=== PATIENT | male | born 1980 | race Hispanic/Latino ===

== ENCOUNTER 2017-12-23 08:53 | Emergency (ER) | payer SELFPAY ==
--- NOTE | 2017-12-23 09:20 | ER ---
Nurse's Notes [facility] Name: Devyn Gómez Age: 37 yrs Sex: Male : 1980 Arrival Date: 12/23/2017 Time: 08:57 Bed 19 Private MD: Rosi Mcelroy H Diagnosis: Malaise and fatigue;Cough Presentation: 12/23 09:05 Presenting complaint: Patient states: "I've just been feeling tired since Thursday, like ss dry mouth, I can't taste anything, and it's just like flu like symptoms.". Transition of care: patient was not received from another setting of care. Onset of symptoms was December 21, 2017. Risk Assessment: Do you want to hurt yourself or someone else? Patient reports no desire to harm self or others. Initial Sepsis Screen: Does the patient meet any 2 criteria? No. Patient's initial sepsis screen is negative. Does the patient have a suspected source of infection? No. Patient's initial sepsis screen is negative. Care prior to arrival: None. 09:05 Method Of Arrival: Ambulatory ss 09:05 Acuity: NEERU 4 ss Historical: - Allergies: 09:08 No Known Allergies; ss - Home Meds: 09:08 None [Active]; ss - PMHx: 09:08 None; ss - PSHx: 09:08 L ankle sx; testicular tortion correction as a child; ss - Immunization history:: Adult Immunizations up to date. - Social history:: Smoking status: Patient uses tobacco products, denies chronic smoking, but will smoke occasionally. - Ebola Screening: : Patient denies exposure to infectious person Patient denies travel to an Ebola-affected area in the 21 days before illness onset. Screenin:10 Abuse screen: Denies threats or abuse. Denies injuries from another. Nutritional jl7 screening: No deficits noted. Tuberculosis screening: No symptoms or risk factors identified. Fall Risk None identified. Assessment: 09:10 General: Appears in no apparent distress. uncomfortable, Behavior is calm, cooperative. jl7 Pain: Complains of pain in all over Quality of pain is described as aching, Pain began 2-3 days ago. Is continuous. Neuro: Level of Consciousness is awake, alert, obeys commands, Oriented to person, place, time, situation, Gait is steady. Cardiovascular: Patient's skin is warm and dry. Respiratory: Airway is patent Respiratory effort is even, unlabored, Respiratory pattern is regular, symmetrical. GI: No signs and/or symptoms were reported involving the gastrointestinal system. Patient currently denies diarrhea, nausea, vomiting. : No signs and/or symptoms were reported regarding the genitourinary system. EENT: No signs and/or symptoms were reported regarding the EENT system. Derm: Skin is pink, warm \\T\\ dry. Musculoskeletal: No signs and/or symptoms reported regarding the musculoskeletal system. 09:40 Reassessment: Pt drank apple juice, denies discomfort at this time. jl7 Vital Signs: 09:08 BP 143 / 97; Pulse 90; Resp 18; Temp 98.0(TE); Pulse Ox 100% on R/A; Weight 82.55 kg; ss Height 5 ft. 2 in. (157.48 cm); Pain 0/10; 09:31 BP 130 / 78 Supine; Pulse 79; Resp 16 S; Pulse Ox 98% on R/A; jl7 09:33 BP 138 / 73 Sitting; Pulse 84; Resp 16 S; Pulse Ox 98% on R/A; jl7 09:35 BP 138 / 85 Standing; Pulse 92; Resp 16 S; Pulse Ox 98% on R/A; jl7 09:08 Body Mass Index 33.29 (82.55 kg, 157.48 cm) ED Course: 08:57 Patient arrived in ED. mr 08:57 Rosi Mcelroy DO is Private Physician. mr 09:01 Km Solano MD is Attending Physician. jere 09:07 Karley Zepeda RN is Primary Nurse. [facility] 09:07 Triage completed. 09:08 Arm band placed on right wrist. ss 09:10 Patient has correct armband on for positive identification. Bed in low position. Call jl7 light in reach. Side rails up X 1. Pulse ox on. NIBP on. 09:19 Rosi Mcelroy DO is Referral Physician. jere 09:25 X-ray completed. Portable x-ray completed in exam room. Patient tolerated procedure ka well. 09:37 Chest Single View XRAY In Process Unspecified. EDMS 09:41 Urine collected: clean catch specimen, clear. 5 10:02 No provider procedures requiring assistance completed. Patient did not have IV access jl7 during this emergency room visit. Administered Medications: No medications were administered Outcome: :20 Discharge ordered by . jere 10:02 Discharged to home ambulatory. jlVanda 10:02 Condition: stable 10:02 Discharge instructions given to patient, Instructed on discharge instructions, follow up and referral plans. Demonstrated understanding of instructions, follow-up care. 10:02 Patient left the ED. jl7 Signatures: Dispatcher [employer] EDMT Km Solano MD MD cha Rivera, Beata Reid, RN RN Beverly Cheung [facility] Karley Zepeda RN RN jl7
--- NOTE | 2017-12-23 09:21 | EDPHYS ---
Physician Documentation [facility] Name: Devyn Gómez Age: 37 yrs Sex: Male : 1980 Arrival Date: 12/23/2017 Time: 08:57 Bed 19 Private MD: Rosi Mcelroy H ED Physician Km Solano HPI: 12/23 09:15 This 37 yrs old Male presents to ER via Ambulatory with complaints of Fever, jere Dizziness. 09:15 The patient reports fever, not measured (subjective). Onset: The symptoms/episode jere began/occurred. Modifying factors: there are no obvious modifying factors. Associated signs and symptoms: Pertinent positives: cough. Severity of symptoms: At their worst the symptoms were mild in the emergency department the symptoms are unchanged. The patient has not experienced similar symptoms in the past. Historical: - Allergies: 09:08 No Known Allergies; ss - Home Meds: 09:08 None [Active]; ss - PMHx: 09:08 None; ss - PSHx: 09:08 L ankle sx; testicular tortion correction as a child; ss - Immunization history:: Adult Immunizations up to date. - Social history:: Smoking status: Patient uses tobacco products, denies chronic smoking, but will smoke occasionally. - Ebola Screening: : Patient denies exposure to infectious person Patient denies travel to an Ebola-affected area in the 21 days before illness onset. ROS: 09:18 Constitutional: Negative for fever, chills, and weight loss, Eyes: Negative for injury, jere pain, redness, and discharge, ENT: Negative for injury, pain, and discharge, Neck: Negative for injury, pain, and swelling, Cardiovascular: Negative for chest pain, palpitations, and edema, Abdomen/GI: Negative for abdominal pain, nausea, vomiting, diarrhea, and constipation, Back: Negative for injury and pain, : Negative for injury, bleeding, discharge, and swelling, MS/Extremity: Negative for injury and deformity, Skin: Negative for injury, rash, and discoloration, Neuro: Negative for headache, weakness, numbness, tingling, and seizure, Psych: Negative for depression, anxiety, suicide ideation, homicidal ideation, and hallucinations, Allergy/Immunology: Negative for hives, rash, and allergies, Endocrine: Negative for neck swelling, polydipsia, polyuria, polyphagia, and marked weight changes. 09:18 Respiratory: Positive for cough. Exam: 09:18 Constitutional: This is a well developed, well nourished patient who is awake, alert, jere and in no acute distress. Head/Face: Normocephalic, atraumatic. Eyes: Pupils equal round and reactive to light, extra-ocular motions intact. Lids and lashes normal. Conjunctiva and sclera are non-icteric and not injected. Cornea within normal limits. Periorbital areas with no swelling, redness, or edema. ENT: Nares patent. No nasal discharge, no septal abnormalities noted. Tympanic membranes are normal and external auditory canals are clear. Oropharynx with no redness, swelling, or masses, exudates, or evidence of obstruction, uvula midline. Mucous membranes moist. Neck: Trachea midline, no thyromegaly or masses palpated, and no cervical lymphadenopathy. Supple, full range of motion without nuchal rigidity, or vertebral point tenderness. No Meningismus. Chest/axilla: Normal chest wall appearance and motion. Nontender with no deformity. No lesions are appreciated. Cardiovascular: Regular rate and rhythm with a normal S1 and S2. No gallops, murmurs, or rubs. Normal PMI, no JVD. No pulse deficits. Respiratory: Lungs have equal breath sounds bilaterally, clear to auscultation and percussion. No rales, rhonchi or wheezes noted. No increased work of breathing, no retractions or nasal flaring. Abdomen/GI: Soft, non-tender, with normal bowel sounds. No distension or tympany. No guarding or rebound. No evidence of tenderness throughout. Back: No spinal tenderness. No costovertebral tenderness. Full range of motion. Male : Normal genitalia with no discharge or lesions. Skin: Warm, dry with normal turgor. Normal color with no rashes, no lesions, and no evidence of cellulitis. MS/ Extremity: Pulses equal, no cyanosis. Neurovascular intact. Full, normal range of motion. Neuro: Awake and alert, GCS 15, oriented to person, place, time, and situation. Cranial nerves II-XII grossly intact. Motor strength 5/5 in all extremities. Sensory grossly intact. Cerebellar exam normal. Normal gait. Psych: Awake, alert, with orientation to person, place and time. Behavior, mood, and affect are within normal limits. 09:18 Neck: ROM/movement: Meningeal signs: are not present, Kernig's sign is negative, Brudzinski's sign is negative. Vital Signs: 09:08 BP 143 / 97; Pulse 90; Resp 18; Temp 98.0(TE); Pulse Ox 100% on R/A; Weight 82.55 kg; ss Height 5 ft. 2 in. (157.48 cm); Pain 0/10; 09:31 BP 130 / 78 Supine; Pulse 79; Resp 16 S; Pulse Ox 98% on R/A; jl7 09:33 BP 138 / 73 Sitting; Pulse 84; Resp 16 S; Pulse Ox 98% on R/A; jl7 09:35 BP 138 / 85 Standing; Pulse 92; Resp 16 S; Pulse Ox 98% on R/A; jl7 09:08 Body Mass Index 33.29 (82.55 kg, 157.48 cm) MDM: 09:01 Patient medically screened. [facility] 09:18 Data reviewed: vital signs, nurses notes, lab test result(s), radiologic studies. [facility] 12/23 09:42 Order name: Urine Dipstick--Ancillary (enter results) 12/23 09:18 Order name: Chest Single View XRAY [facility] 12/23 09:15 Order name: Vital Signs; Complete Time: 09:40 [facility] 12/23 09:18 Order name: Urine Dipstick-Ancillary (obtain specimen); Complete Time: 09:40 [facility] 12/23 09:20 Order name: PO challenge; Complete Time: 09:40 [facility] 12/23 09:20 Order name: Orthostatics; Complete Time: 09:40 [facility] Administered Medications: No medications were administered Disposition: 12/23/17 09:20 Discharged to Home. Impression: Malaise and fatigue, Cough. - Condition is Stable. - Discharge Instructions: Dizziness, Weakness, Cough, Adult, Pzga-an-Qhtz, Weakness, Xvxo-qa-Orot, Dizziness, Ibve-tg-Jali. - Work release form, Medication Reconciliation Form, Thank You Letter, Antibiotic Education, Prescription Opioid Use form. - Follow up: Rosi Mcelroy DO; When: 2 - 3 days; Reason: Recheck today's complaints, Continuance of care, Re-evaluation by your physician. - Problem is new. - Symptoms have improved. Signatures: Dispatcher [employer] EDKm Adam MD MD cha Smirch, Shelby RN RN Karley Zepeda RN RN jl7 Corrections: (The following items were deleted from the chart) 10:02 09:20 12/23/2017 09:20 Discharged to Home. Impression: Malaise and fatigue; Cough. jl7 Condition is Stable. Forms are Medication Reconciliation Form, Thank You Letter, Antibiotic Education, Prescription Opioid Use. Follow up: Rosi Mcelroy; When: 2 - 3 days; Reason: Recheck today's complaints, Continuance of care, Re-evaluation by your physician. Problem is new. Symptoms have improved. jere
--- NOTE | 2017-12-23 10:01 | RAD REPORT ---
EXAM DESCRIPTION: RAD - Chest Single View - 12/23/2017 9:37 am CLINICAL HISTORY: Cough, flu-like symptoms COMPARISON: None. TECHNIQUE: AP portable chest image was obtained 0929 hours . FINDINGS: Lungs are clear. Heart and vasculature are normal. No measurable pleural effusion and no p neumothorax. No gross bony abnormality seen. No acute aortic findings suspected. IMPRESSION: No acute cardiopulmonary process.
[2017-12-23 10:43] LABS: Urine Blood TRACE (NEG); Urine Glucose NEGATIVE (NEG); Urine Protein 1+ (NEG); Urine Specific Gravity 1.015 (1.005-1.030); Urine pH 8.5 (5.0-7.0)
== END 2017-12-23 10:02 | disposition home or self-care (01) ==
LOC: ER 08:53
DX: R53.81 Other malaise (principal); R53.83 Other fatigue; Z72.0 Tobacco use
CPT/HCPCS: 71045; 81003; 99284

== ENCOUNTER 2021-02-01 08:31 | Emergency (ER) | payer SELFPAY ==
--- NOTE | 2021-02-01 08:49 | EDPHYS ---
Physician Documentation [facility] Name: Devyn Gómez Age: 40 yrs Sex: Male : 1980 Arrival Date: 02/01/2021 Time: 08:34 Bed 16 Private MD: ED Physician Satish Elias HPI: 02/01 08:46 This 40 yrs old Male presents to ER via Unassigned with complaints of kb Congestion, r/o fever. 08:46 The patient or guardian reports cough, that is intermittent, described as mild. Onset: kb The symptoms/episode began/occurred 1.5 week(s) ago. Severity of symptoms: At their worst the symptoms were moderate, in the emergency department the symptoms have improved. Modifying factors: The symptoms are alleviated by nothing, the symptoms are aggravated by nothing. Associated signs and symptoms: Pertinent positives: rhinorrhea, Pertinent negatives: chest pain, diarrhea, ear ache, fever, nausea, sore throat, vomiting. The patient has not experienced similar symptoms in the past. The patient has not recently seen a physician. Pt reports cough and congestion for 1.5 weeks. States this happens when the weather changes. States he took a couple of days off work and when he tried to go back today they told him he needed to make sure he didn't have a fever. States he is feeling better, but came to make sure he didn't have a fever. Does not want any testing done. . Historical: - Allergies: 08:49 No Known Allergies; jt3 - Immunization history:: Adult Immunizations unknown. - Social history:: Smoking status: unknown. ROS: 08:48 Abdomen/GI: Negative for abdominal pain, nausea, vomiting, diarrhea, and constipation. kb 08:48 Constitutional: Positive for chills, fatigue, Negative for body aches, fever, malaise, poor PO intake, weight loss. 08:48 ENT: Positive for sinus congestion. 08:48 Respiratory: Positive for cough. 08:48 All other systems are negative. Exam: 08:48 Constitutional: This is a well developed, well nourished patient who is awake, alert, kb and in no acute distress. Head/Face: Normocephalic, atraumatic. ENT: Moist Mucous membranes Cardiovascular: Regular rate and rhythm with a normal S1 and S2. No gallops, murmurs, or rubs. No pulse deficits. Respiratory: Respirations even and unlabored. No increased work of breathing, no retractions or nasal flaring. Skin: Warm, dry with normal turgor. Normal color. MS/ Extremity: Pulses equal, no cyanosis. Neurovascular intact. Full, normal range of motion. Neuro: Awake and alert, GCS 15, oriented to person, place, time, and situation. Moves all extremities. Normal gait. Psych: Awake, alert, with orientation to person, place and time. Behavior, mood, and affect are within normal limits. Vital Signs: 08:51 BP 138 / 52; Pulse 87; Resp 16; Temp 97.1(TE); Pulse Ox 99% on R/A; Weight 84.82 kg; ss Height 5 ft. 2 in. (157.48 cm); Pain 0/10; 08:51 Body Mass Index 34.20 (84.82 kg, 157.48 cm) ss MDM: 08:41 Patient medically screened. kb 08:48 Data reviewed: vital signs, nurses notes. Data interpreted: Pulse oximetry: on room air kb is 100 %. Interpretation: normal. Counseling: I had a detailed discussion with the patient and/or guardian regarding: the historical points, exam findings, and any diagnostic results supporting the discharge/admit diagnosis, the need for outpatient follow up, a family practitioner, to return to the emergency department if symptoms worsen or persist or if there are any questions or concerns that arise at home. Administered Medications: No medications were administered Disposition: 14:14 Co-signature as Attending Physician, Satish Elias MD I agree with the assessment and kdr plan of care. Disposition Summary: 02/01/21 08:48 Discharge Ordered Location: Home kb Condition: Stable kb Diagnosis - Acute upper respiratory infection, unspecified kb Followup: kb - With: Emergency Department - When: As needed - Reason: Worsening of condition Followup: kb - With: Private Physician - When: 2 - 3 days - Reason: Recheck today's complaints, Continuance of care, Re-evaluation by your physician Discharge Instructions: - Discharge Summary Sheet kb - Upper Respiratory Infection, Adult, [id number] kb - Viral Respiratory Infection, Uzal-Ms-Iizr kb Forms: - Medication Reconciliation Form kb - Thank You Letter kb - Work release form kb - Antibiotic Education kb - Prescription Opioid Use kb Signatures: Cheryl Bill, [employer]-Ckb Satish Elias MD MD kdr Pb Mckeon RN RN jt3
--- NOTE | 2021-02-01 09:00 | ER ---
Nurse's Notes [facility] Name: Devyn Gómez Age: 40 yrs Sex: Male : 1980 Arrival Date: 02/01/2021 Time: 08:34 Bed 16 Private MD: Diagnosis: Acute upper respiratory infection, unspecified Presentation: 02/01 08:51 Chief complaint: Patient states: wants to make sure he does not have a fever before ss returning to work. Was not feeling well over the past week and a half, but now feels better. Does not want any testing, just a temperature check. Coronavirus screen: Client denies travel out of the [place] in the last 14 days. Ebola Screen: Patient denies exposure to infectious person. Patient denies travel to an Ebola-affected area in the 21 days before illness onset. Resp Distress? No respiratory distress is noted at this time. Initial Sepsis Screen: Does the patient meet any 2 criteria? No. Patient's initial sepsis screen is negative. Does the patient have a suspected source of infection? No. Patient's initial sepsis screen is negative. Risk Assessment: Do you want to hurt yourself or someone else? Patient reports no desire to harm self or others. Onset of symptoms was January 23, 2021. 08:51 Method Of Arrival: Ambulatory ss 08:51 Acuity: NEERU 5 ss Triage Assessment: 08:56 General: Appears in no apparent distress. Respiratory: Breath sounds are clear. jt3 Historical: - Allergies: 08:49 No Known Allergies; jt3 - Immunization history:: Adult Immunizations unknown. - Social history:: Smoking status: unknown. Screenin:49 Abuse screen: Denies threats or abuse. Denies injuries from another. Nutritional jt3 screening: No deficits noted. Tuberculosis screening: No symptoms or risk factors identified. Fall Risk None identified. Assessment: 08:49 General: Appears in no apparent distress. Behavior is calm, cooperative. Pain: Denies jt3 pain. Cardiovascular: No deficits noted. Respiratory: No deficits noted. Parent/caregiver reports the patient having Pt. reports wanting to just be checked for fever. Denies SOB, chest pain, or chills at this time. 08:59 Cardiovascular:. Cardiovascular: Denies chest pain. Respiratory: Reports Denies SOB. jt3 Airway is patent. Vital Signs: 08:51 BP 138 / 52; Pulse 87; Resp 16; Temp 97.1(TE); Pulse Ox 99% on R/A; Weight 84.82 kg; ss Height 5 ft. 2 in. (157.48 cm); Pain 0/10; 08:51 Body Mass Index 34.20 (84.82 kg, 157.48 cm) ED Course: 08:34 Patient arrived in ED. as 08:39 Cheryl Bill FNP-C [facility]. kb 08:39 Satish Elias MD is Attending Physician. kb 08:41 Pb Mckeon, RN is Primary Nurse. jt3 08:49 Patient has correct armband on for positive identification. jt3 08:49 No provider procedures requiring assistance completed. Patient did not have IV access jt3 during this emergency room visit. 08:51 Arm band placed on right wrist. ss 08:55 Triage completed. ss Administered Medications: No medications were administered Outcome: 08:48 Discharge ordered by MD. kb 08:55 Discharged to home ambulatory. jt3 08:55 Condition: good 08:55 Discharge instructions given to patient, Instructed on discharge instructions. 09:00 Patient left the ED. Signatures: Cheryl Bill FNP-C FNP-Ckb Martinez, Amelia as Smirch, Shelby, RN RN Pb Mckeon, RN RN jt3
[2021-02-01 09:08] VITALS: BP 138/52; TEMP 97.1; O2SAT 99
== END 2021-02-01 09:00 | disposition home or self-care (01) ==
LOC: ER 08:31
DX: J06.9 Acute upper respiratory infection, unspecified (principal)
CPT/HCPCS: 99281

== ENCOUNTER 2024-07-22 11:28 | Emergency (ER) | payer SELFPAY ==
--- OUTSIDE RECORDS SUMMARY | 2024-07-22 11:31 | XMS REPORT | Continuity of Care Document ---
Author Name Unknown Address [address] [place] [address] [facility]. [address] [place] [address] Care Team Providers Care Clinical Data Management Director Name Role Phone Unavailable Unavailable Unavailable Encounters Start Date/Time End Date/Time Encounter Type Admission Type Attending Clinicians Care Facility Care Department Encounter ID Source 2023-07-01 09:37:20 2023-07-01 09:37:20 Outpatient [facility] [id number] Hair Romero 2022-12-18 09:30:39 2022-12-18 09:30:39 Outpatient [facility] [id number] Hair Romero
--- NOTE | 2024-07-22 12:40 | RAD REPORT ---
EXAM: Chest Single View HISTORY: 43 years Male COUGH COMPARISON: None. FINDINGS: LUNGS/PLEURA: The lungs are clear. No pleural effusions or pneumothorax. No pulmonary edema. CARDIAC/MEDIASTINUM: The cardiac silhouette is within normal limits. UPPER ABDOMEN: No significant abnormality. BONES: No acute abnormality. LINES/TUBES/OTHER: N/A IMPRESSION: No evidence of acute cardiopulmonary disease.
--- NOTE | 2024-07-22 12:48 | EDPHYS ---
Physician Documentation [facility] Name: Devyn Gómez Age: 43 yrs Sex: Male : 1980 Arrival Date: 07/22/2024 Time: 11:28 Bed 12 Private MD: ED Physician Mary Pitt HPI: 07/22 12:51 This 43 yrs old Male presents to ER via Ambulatory with complaints of Cough, gb1 Shortness Of Breath. 12:51 43-year-old male with cough and shortness of breath. Patient's been having just a dry gb1 cough with his allergy symptoms. He denies any chest pain. He does have a history of hypertension but does not stay compliant with his medications as prescribed. He is currently not taking any medications. He denies any fever or chills. He states he feels congestion in his chest wall.. Historical: - Allergies: 12:06 No Known Allergies; jl7 - Home Meds: 12:06 None [Active]; jl7 - PMHx: 12:06 Hypertensive disorder; jl7 - PSHx: 12:06 None; jl7 - Immunization history:: Adult Immunizations unknown. - Infectious Disease History:: Denies. - Social history:: Smoking status: unknown. Exam: 12:51 Constitutional: This is a well developed, well nourished patient who is awake, alert, gb1 and in no acute distress. Head/Face: Normocephalic, atraumatic. Eyes: Pupils equal round and reactive to light, extra-ocular motions intact. Lids and lashes normal. Conjunctiva and sclera are non-icteric and not injected. Cornea within normal limits. Periorbital areas with no swelling, redness, or edema. ENT: Nares patent. No nasal discharge, no septal abnormalities noted. Tympanic membranes are normal and external auditory canals are clear. Oropharynx with no redness, swelling, or masses, exudates, or evidence of obstruction, uvula midline. Mucous membranes moist. Neck: Trachea midline, no thyromegaly or masses palpated, and no cervical lymphadenopathy. Supple, full range of motion without nuchal rigidity, or vertebral point tenderness. No Meningismus. Chest/axilla: Normal chest wall appearance and motion. Nontender with no deformity. No lesions are appreciated. Cardiovascular: Regular rate and rhythm with a normal S1 and S2. No gallops, murmurs, or rubs. Normal PMI, no JVD. No pulse deficits. Respiratory: Lungs have equal breath sounds bilaterally, clear to auscultation and percussion. No rales, rhonchi or wheezes noted. No increased work of breathing, no retractions or nasal flaring. Abdomen/GI: Soft, non-tender, with normal bowel sounds. No distension or tympany. No guarding or rebound. No evidence of tenderness throughout. Skin: Warm, dry with normal turgor. Normal color with no rashes, no lesions, and no evidence of cellulitis. MS/ Extremity: Pulses equal, no cyanosis. Neurovascular intact. Full, normal range of motion. Vital Signs: 12:01 BP 162 / 114; Pulse 113; Resp 17; Temp 98.4; Pulse Ox 100% ; jl7 12:52 BP 155 / 102; Pulse 87; Resp 17; ap3 12:01 Education provided on hypertension management jl7 MDM: 12:02 Medical Screening Exam initiated gb1 12:51 Data reviewed: vital signs, nurses notes. ED course: 43-year-old male with signs gb1 symptoms consistent with an acute bronchitis. No focal pneumonia on chest x-ray. Patient is afebrile and otherwise does not have any anginal equivalents today. I doubt acute influenza or strep pharyngitis. Patient has a history of uncontrolled hypertension secondary to medication noncompliance. Myself and the triage bedside nurse did reiterate to the patient about 3-day blood pressure check 3 times a day and patient is to follow-up with his primary care doctor of record for medications reconciliation for his blood pressure.. 07/22 12:03 Order name: Chest Single View XRAY; Complete Time: 12:47 gb1 Administered Medications: No medications were administered Disposition Summary: 07/22/24 12:48 Discharge Ordered Notes: Location: Home gb1 Problem: new gb1 Symptoms: have worsened gb1 Condition: Stable gb1 Diagnosis - Acute bronchitis, unspecified gb1 Followup: gb1 - With: Private Physician - When: - Reason: Re-evaluation by your physician Discharge Instructions: - Discharge Summary Sheet gb1 - Acute Bronchitis, Adult gb1 - Viral Respiratory Infection, Phmi-Yo-Ehlc gb1 Forms: - Medication Reconciliation Form gb1 - Antibiotic Education gb1 - Prescription Opioid Use gb1 - Patient Portal Instructions gb1 - Leadership Thank You Letter gb1 Signatures: Dispatcher [employer] Karley Corley, RN RN jl7 Mary Pitt MD MD gb1
--- NOTE | 2024-07-22 12:48 | ER ---
Nurse's Notes [facility] Name: Devyn Gómez Age: 43 yrs Sex: Male : 1980 Arrival Date: 07/22/2024 Time: 11:28 Bed 12 Private MD: Diagnosis: Acute bronchitis, unspecified Presentation: 07/22 12:01 Chief complaint: Patient states: Dry cough x 1 month. Coronavirus screen: At this time, jl7 the client does not indicate any symptoms associated with coronavirus-19. Ebola Screen: No symptoms or risks identified at this time. Initial Sepsis Screen: Does the patient meet any 2 criteria? No. Patient's initial sepsis screen is negative. Does the patient have a suspected source of infection? No. Patient's initial sepsis screen is negative. Risk Assessment: Do you want to hurt yourself or someone else? Patient reports no desire to harm self or others. Onset of symptoms is unknown. 12:01 Method Of Arrival: Ambulatory jl7 12:01 Acuity: NEERU 3 jl7 Triage Assessment: 12:06 General: Appears in no apparent distress. uncomfortable, Behavior is calm, cooperative, jl7 appropriate for age. Pain: Denies pain. Respiratory: Reports cough that is non-productive, dry, Onset: The symptoms/episode began/occurred x 1 month, the patient has mild shortness of breath. Historical: - Allergies: 12:06 No Known Allergies; jl7 - Home Meds: 12:06 None [Active]; jl7 - PMHx: 12:06 Hypertensive disorder; jl7 - PSHx: 12:06 None; jl7 - Immunization history:: Adult Immunizations unknown. - Infectious Disease History:: Denies. - Social history:: Smoking status: unknown. Screenin:02 [facility] ED Fall Risk Assessment (Adult) History of falling in the last 3 months, ap3 including since admission No falls in past 3 months (0 pts) Confusion or Disorientation No (0 pts) Intoxicated or Sedated No (0 pts) Impaired Gait No (0 pts) Mobility Assist Device Used No (0 pt) Altered Elimination No (0 pt) Score/Fall Risk Level 0 - 2 = Low Risk Oriented to surroundings, Maintained a safe environment, Educated pt \T\ family on fall prevention, incl call for assistance when getting out of bed, Assessed \T\ reinforced patient's understanding of fall precautions, Hourly rounding (assess needs \T\ fall precautionary measures) done, Used ambulatory aids as needed (educated on \T\ assisted with). Abuse screen: Denies threats or abuse. Nutritional screening: No deficits noted. Tuberculosis screening: No symptoms or risk factors identified. Vital Signs: 12:01 BP 162 / 114; Pulse 113; Resp 17; Temp 98.4; Pulse Ox 100% ; jl7 12:52 BP 155 / 102; Pulse 87; Resp 17; ap3 12:01 Education provided on hypertension management jl7 ED Course: 11:30 Patient arrived in ED. mr 11:40 Mary Pitt MD is Attending Physician. gb1 12:06 Triage completed. jl7 12:06 Arm band placed on right wrist. jl7 12:21 Chest Single View XRAY In Process Unspecified. EDMS 13:02 No provider procedures requiring assistance completed. Patient did not have IV access ap3 during this emergency room visit. 13:03 Patient has correct armband on for positive identification. ap3 13:03 Provided Education on: discharge intructions. ap3 Administered Medications: No medications were administered Medication: 13:03 VIS not applicable for this client. ap3 Outcome: 12:48 Discharge ordered by . gb1 13:03 Condition: good ap3 13:03 Discharge instructions given to patient, family, Instructed on discharge instructions, follow up and referral plans. Demonstrated understanding of instructions, follow-up care, 13:04 Discharged to home ambulatory, ap3 13:04 Patient left the ED. ap3 Signatures: Dispatcher [employer] EDCT Phylicia Botello, Reg Reg Karley James RN RN jl7 Marina Dyer RN RN ap3 Mary Pitt MD MD gb1 Corrections: (The following items were deleted from the chart) 13:03 13:03 Provided Education on: crutch walking. ap3 ap3 13:04 13:03 Discharged to home with crutches, with family, ap3 ap3
[2024-07-22 13:59] VITALS: TEMP 98.4; O2SAT 100
[2024-07-22 14:00] VITALS: BP 155/102
== END 2024-07-22 13:04 | disposition home or self-care (01) ==
LOC: ER 11:28
DX: J20.9 Acute bronchitis, unspecified (principal)
CPT/HCPCS: 71045; 99282

== ENCOUNTER 2024-11-03 17:36 | Emergency (ER) | payer SELFPAY ==
--- NOTE | 2024-11-03 17:49 | EDPHYS ---
Physician Documentation [facility] Name: Devyn Gómez Age: 44 yrs Sex: Male : 1980 Arrival Date: 11/03/2024 Time: 17:36 Bed IW2 Private MD: ED Physician Donovan Nuñez HPI: 11/03 17:49 This 44 yrs old Male presents to ER via Ambulatory with complaints of Flu ms3 Symptoms. 17:49 44-year-old male with past medical history of hypertension presents to the emergency ms3 department for feeling sick on Thursday, fevers on Thursday with body aches, and nasal congestion. Patient states since Thursday he has began feeling better and his employer is requiring a note for him to return to work on Thursday.. Historical: - Allergies: 17:55 No Known Allergies; db - PMHx: 17:55 Hypertensive disorder; db - Immunization history:: Adult Immunizations unknown. - Infectious Disease History:: Denies. - Social history:: Smoking status: Patient reports the use of cigarette tobacco products, smokes one-half pack cigarettes per day. ROS: 17:49 MS/Extremity: Negative for injury and deformity, Skin: Negative for injury, rash, and ms3 discoloration, 17:49 Cardiovascular: Negative for chest pain, and palpitations. 17:49 Respiratory: Positive for cough, 17:49 Constitutional: Positive for body aches, chills, fever, ms3 Exam: 17:49 Constitutional: This is a well developed, well nourished patient who is awake, alert, ms3 and in no acute distress. Chest/axilla: Normal chest wall appearance and motion. Nontender with no deformity. Cardiovascular: Regular rate and rhythm with a normal S1 and S2. No gallops, murmurs, or rubs. Normal PMI, no JVD. No pulse deficits. Respiratory: Lungs have equal breath sounds bilaterally, clear to auscultation and percussion. No rales, rhonchi or wheezes noted. No increased work of breathing, no retractions or nasal flaring. 17:49 Skin: Warm, dry with normal turgor. Normal color with no rashes, no lesions, and no evidence of cellulitis. 17:49 ENT: Nose: nasal drainage, that is minimal, and is seen coming from both nares, Vital Signs: 17:53 BP 132 / 96; Pulse 100; Resp 18; Temp 98.3; Pulse Ox 98% on R/A; Weight 81.65 kg; db Height 5 ft. 2 in. ; 17:53 Body Mass Index 32.92 (81.65 kg, 157.48 cm) db MDM: 17:49 Differential diagnosis: flu, URI, COVID. Data reviewed: vital signs, nurses notes, and ms3 as a result, I will discharge patient. Counseling: I had a detailed discussion with the patient and/or guardian regarding the historical points, exam findings, and any diagnostic results supporting the discharge/admit diagnosis, the need for outpatient follow up, to return to the emergency department if symptoms worsen or persist or if there are any questions or concerns that arise at home. Special discussion: I discussed with the patient/guardian in detail that at this point there is no indication for admission to the hospital. It is understood, however, that if the symptoms persist or worsen the patient needs to return immediately for re-evaluation. ED course: Patient given note to return to work on Thursday. Patient afebrile in the emergency department, speaking full sentences, ambulatory in emergency room. Patient to follow-up with primary care physician in 2 to 3 days. All questions were answered. Return precautions discussed include worsening symptoms, or any other concerns. MDM: 17:40 Medical Screening Exam initiated ms3 Administered Medications: No medications were administered Disposition Summary: 11/03/24 17:49 Discharge Ordered Notes: Location: Home ms3 Condition: Stable ms3 Diagnosis - Acute upper respiratory infection, unspecified ms3 Followup: ms3 - With: Ant Cheatham DO - When: 2 - 3 days - Reason: Recheck today's complaints Discharge Instructions: - Discharge Summary Sheet ms3 - Upper Respiratory Infection, Adult ms3 Forms: - Work release form ms3 - Medication Reconciliation Form ms3 - Antibiotic Education ms3 - Prescription Opioid Use ms3 - Patient Portal Instructions ms3 - Leadership Thank You Letter ms3 Signatures: Dispatcher [employer] EDMS Donovan Nuñez DO DO ms3 Grisel Pagan, RN RN db Corrections: (The following items were deleted from the chart) 19:45 17:49 Constitutional: Negative for fever, and chills. Cardiovascular: Negative for ms3 chest pain, and palpitations. ms3
--- OUTSIDE RECORDS SUMMARY | 2024-11-03 17:49 | XMS REPORT | Continuity of Care Document ---
Author Name Unknown Address [address] [place] [address] [facility] Address [address] [place] [address] Care Team Providers Care Electronic System Engineer Name Role Phone Mila Deng Primary Care Physician Medications Ordered Medication Name Filled Medication Name Start Date Stop Date Current Medication? Ordering Clinician Indication Dosage Frequency Signature (SIG) Comments Components Source amoxicillin 875 mg-potassiu m clavulanate 125 mg tablet 07-28 00:00: 00 Yes 1mg Hair Romero prednisone 20 mg tablet 07-22 00:00: 00 Yes 1mg Hair Romero azithromyci n 250 mg tablet 07-22 00:00: 00 Yes 1mg Hair Romero benzonatate 200 mg capsule 07-22 00:00: 00 Yes 1mg Hair Romero TAKE 1 TABLET DAILY. 2022-03 0-05 00:00: 00 06-28 00:00 :00 No 5 Hair Romero TAKE 1 TABLET DAILY. 9-28 00:00: 00 06-28 00:00 :00 No 5 Hair Romero Vital Signs Vital Name Observation Time Observation Value Comments S winston BP Systolic 2024-09-29 14:04:00 130 mm[Hg] Step hen Elma Romero BP Diastolic 2024-09-29 14:04:00 83 mm[Hg] Stan Romero Weight Measured 2024-09-29 14:04:00 214.00 pounds Hair Romero Height Measured 2024-09-29 14:04:00 63.00 inches Hair Romero Body Temperature 2024-09-29 14:04:00 98.40 degrees Hair F Nick Heart Rate 2024-09-29 14:04:00 101.00 /min Step hen F Nick Respiratory Rate 2024-09-29 14:04:00 20.00 /min Hair F Nick BP Systolic 2024-07-28 15:54:00 94 mm[Hg] Step hen F Nick BP Diastolic 2024-07-28 15:54:00 73 mm[Hg] Stan phen F Nick Weight Measured 2024-07-28 15:54:00 220.40 pounds Hair F Nick Height Measured 2024-07-28 15:54:00 63.00 inches Hair F Nick Body Temperature 2024-07-28 15:54:00 98.00 degrees Hair F Nick Heart Rate 2024-07-28 15:54:00 119.00 /min Step hen F Nick Respiratory Rate 2024-07-28 15:54:00 19.00 /min Hair F Nick Body Temperature 2024-07-22 15:24:00 98.30 degrees Hair F Nick Heart Rate 2024-07-22 15:24:00 106.00 /min Step hen F Nick Respiratory Rate 2024-07-22 15:24:00 Hair F Nick BP Systolic 2024-07-22 15:24:00 122 mm[Hg] Step hen F Nick BP Diastolic 2024-07-22 15:24:00 83 mm[Hg] Stan phen F Nick Weight Measured 2024-07-22 15:24:00 224.20 pounds Hair F Nick Height Measured 2024-07-22 15:24:00 63.00 inches Hair F Nick BP Systolic 2022-12-25 08:45:00 141 mm[Hg] Step hen F Nick BP Diastolic 2022-12-25 08:45:00 88 mm[Hg] Stan phen F Nick Weight Measured 2022-12-25 08:45:00 218.60 pounds Hair F Nick Height Measured 2022-12-25 08:45:00 63.00 inches Hair F Nick Body Temperature 2022-12-25 08:45:00 97.20 degrees Hair F Nick Heart Rate 2022-12-25 08:45:00 89.00 /min Tish en F Nick Respiratory Rate 2022-12-25 08:45:00 Hair F Nick BP Systolic 2022-12-18 09:26:00 135 mm[Hg] Anthony Romero BP Diastolic 2022-12-18 09:26:00 82 mm[Hg] Stan Romero Weight Measured 2022-12-18 09:26:00 219.20 pounds Hair Romero Height Measured 2022-12-18 09:26:00 63.00 inches Hair Romero Body Temperature 2022-12-18 09:26:00 97.30 degrees Hair Romero Heart Rate 2022-12-18 09:26:00 91.00 /min Tish Romero Respiratory Rate 2022-12-18 09:26:00 Hair Romero Encounters Start Date/Time End Date/Time Encounter Type Admission Type Attending [facility] Care Department Encounter ID Source 2024-09-29 13:56:57 2024-09-29 13:56:57 Outpatient SFA SFA [id number] Hair Romero 2024-09-29 00:00:00 2024-09-29 00:00:00 Outpatient Visit SFA [id number] Hair Romero 2024-07-28 15:47:21 2024-07-28 15:47:21 Outpatient SFA SFA [id number] Hair Romero 2024-07-28 00:00:00 2024-07-28 00:00:00 Outpatient Visit SFA [id number] Hair Romero 2024-07-22 15:17:50 2024-07-22 15:17:50 Outpatient SFA [id number] [id number] Hair Romero 2024-07-22 00:00:00 2024-07-22 00:00:00 Outpatient Visit SFA [id number] Hair Romero 2023-07-01 09:37:20 2023-07-01 09:37:20 Outpatient SFA SFA [id number] Hair Romero 2022-12-18 09:30:39 2022-12-18 09:30:39 Outpatient [facility] [id number] Hair Romero Notes Date/Time Note Provider Source Hair Madden [facility]2025-05-08 00:00:00 Hair Madden [facility]2025-05-02 00:00:00 Hair Madden [facility]
--- NOTE | 2024-11-03 17:57 | ER ---
Nurse's Notes [facility] Name: Devyn Gómez Age: 44 yrs Sex: Male : 1980 Arrival Date: 11/03/2024 Time: 17:36 Bed IW2 Private MD: Diagnosis: Acute upper respiratory infection, unspecified Presentation: 11/03 17:53 Chief complaint: Patient states: FLU LIKE SYMPTOMS. SON DX WITH COVID SINCE THURSDAY. db Coronavirus screen: Client denies travel out of the [place] in the last 14 days. Client presents with at least one sign or symptom that may indicate coronavirus-19. Standard/surgical mask placed on the client. Ebola Screen: Patient negative for fever greater than or equal to 101.5 degrees Fahrenheit, and additional compatible Ebola Virus Disease symptoms Patient denies exposure to infectious person. Patient denies travel to an Ebola-affected area in the 21 days before illness onset. No symptoms or risks identified at this time. Initial Sepsis Screen: Does the patient meet any 2 criteria? No. Patient's initial sepsis screen is negative. Does the patient have a suspected source of infection? No. Patient's initial sepsis screen is negative. Risk Assessment: Do you want to hurt yourself or someone else? Patient reports no desire to harm self or others. 17:53 Method Of Arrival: Ambulatory db 17:55 Onset of symptoms was November 01, 2024. db 17:55 Acuity: NEERU 5 db Triage Assessment: 17:54 General: Appears in no apparent distress. comfortable, Behavior is calm, cooperative. db Pain: Denies pain. Neuro: Level of Consciousness is awake, alert, obeys commands, Oriented to person, place, time, situation. Historical: - Allergies: 17:55 No Known Allergies; db - PMHx: 17:55 Hypertensive disorder; db - Immunization history:: Adult Immunizations unknown. - Infectious Disease History:: Denies. - Social history:: Smoking status: Patient reports the use of cigarette tobacco products, smokes one-half pack cigarettes per day. Screenin:56 [facility] ED Fall Risk Assessment (Adult) History of falling in the last 3 months, db including since admission No falls in past 3 months (0 pts) Confusion or Disorientation No (0 pts) Intoxicated or Sedated No (0 pts) Impaired Gait No (0 pts) Mobility Assist Device Used No (0 pt) Altered Elimination No (0 pt) Score/Fall Risk Level 0 - 2 = Low Risk Oriented to surroundings, Maintained a safe environment. Abuse screen: Denies threats or abuse. Denies injuries from another. Nutritional screening: No deficits noted. Tuberculosis screening: No symptoms or risk factors identified. Assessment: 17:56 Reassessment: Patient appears in no apparent distress at this time. Patient and/or db family updated on plan of care and expected duration. Pain level reassessed. Patient is alert, oriented x 3, equal unlabored respirations, skin warm/dry/pink. Vital Signs: 17:53 BP 132 / 96; Pulse 100; Resp 18; Temp 98.3; Pulse Ox 98% on R/A; Weight 81.65 kg; db Height 5 ft. 2 in. ; 17:53 Body Mass Index 32.92 (81.65 kg, 157.48 cm) db ED Course: 17:38 Patient arrived in ED. cj3 17:38 Donovan Nuñez DO is Attending Physician. ms3 17:46 Ant Cheatham DO is Referral Physician. ms3 17:54 Arm band placed on. db 17:55 Triage completed. db 17:56 Patient has correct armband on for positive identification. Provided Education on: db DISCHARGE. 17:56 No provider procedures requiring assistance completed. Patient did not have IV access db during this emergency room visit. Administered Medications: No medications were administered Medication: 17:56 VIS not applicable for this client. db Outcome: 17:49 Discharge ordered by . ms3 17:56 Discharged to home ambulatory, db 17:56 Condition: stable 17:56 Discharge instructions given to patient, Instructed on discharge instructions, follow up and referral plans. 17:57 Patient left the ED. db Signatures: Donovan Nuñez DO DO ms3 Grisel Pagan RN RN db Emily Fountain cj3 Corrections: (The following items were deleted from the chart) 17:55 17:53 Coronavirus screen: Client denies travel out of the [place] in the last 14 days. At db this time, the client does not indicate any symptoms associated with coronavirus-19. db
[2024-11-03 20:00] VITALS: BP 132/96; TEMP 98.3; O2SAT 98
== END 2024-11-03 17:57 | disposition home or self-care (01) ==
LOC: ER 17:36
DX: J06.9 Acute upper respiratory infection, unspecified (principal); F17.210 Nicotine dependence, cigarettes, uncomplicated
CPT/HCPCS: 99282